=== PATIENT | female | born 1950 | race Caucasian/White ===

== ENCOUNTER 2017-09-29 11:50 | Inpatient (IN) | payer MEDICARE, BC ==
[2017-09-29] MEDS ORDERED: NORMAL SALINE 1000 ML 1,000 ML IV ONE (12:17)
--- NOTE | 2017-09-29 12:20 | ER Document Report ---
ED Medical Screen (RME) - General Chief Complaint: Fall Stated Complaint: ALTERED MENTAL STATUS Time Seen by Provider: 09/29/17 12:17 Notes: pt with rash on bilat le, confusion. hx strokes. has been spraying house for "bugs". takes 4 bp meds-bp at triage 91 sys. TRAVEL OUTSIDE OF THE [place] IN LAST 30 DAYS: No - Related Data Allergies/Adverse Reactions: No Known Allergies Allergy (Verified 09/29/17 11:53) Past Medical History - Past Medical History Cardiac Medical History: Reports: Hx Coronary Artery Disease, Hx Hypercholesterolemia, Hx Hypertension, Hx Heart Murmur Denies: Hx Atrial Fibrillation, Hx Congestive Heart Failure, Hx Heart Attack , Hx Peripheral Vascular Disease Pulmonary Medical History: Denies: Hx Tuberculosis Neurological Medical History: Reports: Hx Cerebrovascular Accident. Denies: Hx Seizures Renal/ Medical History: Denies: Hx Peritoneal Dialysis GI Medical History: Denies: Hx Crohn's Disease, Hx Gastroesophageal Reflux Disease, Hx Hiatal Hernia, Hx Irritable Bowel, Hx Liver Failure, Hx Pancreatitis , Hx Ulcer Musculoskeltal Medical History: Reports Hx Arthritis, Denies Hx Fibromyalgia, Denies Hx Multiple Sclerosis, Denies Hx Muscular Dystrophy Psychiatric Medical History: Reports: Hx Depression Denies: Hx Dementia Traumatic Medical History: Denies: Hx Fractures Past Surgical History: Reports: Hx Appendectomy, Hx Cardiac Surgery, Hx Coronary Artery Bypass Graft, Hx Hysterectomy, Hx Tonsillectomy. Denies: Hx Bowel Surgery, Hx Section, Hx Cholecystectomy, Hx Colostomy, Hx Gastric Bypass Surgery, Hx Herniorrhaphy, Hx Mastectomy, Hx Pacemaker, Hx Tubal Ligation - Immunizations Hx Diphtheria, Pertussis, Tetanus Vaccination: Yes Physical Exam - Vital signs Vitals: Temp Pulse Resp BP Pulse Ox 97.7 F 78 20 91/61 L 98 09/29/17 12:01 09/29/17 12:01 09/29/17 12:01 09/29/17 12:01 09/29/17 12:01 Course - Vital Signs Vital signs: Temp Pulse Resp BP Pulse Ox 97.7 F 78 20 91/61 L 98 09/29/17 12:01 09/29/17 12:01 09/29/17 12:01 09/29/17 12:01 09/29/17 12:01
--- NOTE | 2017-09-29 13:24 | ER Document Report ---
ED General - General Chief Complaint: Fall Stated Complaint: ALTERED MENTAL STATUS Time Seen by Provider: 09/29/17 12:17 Notes: Patient brought in by son to evaluate rash on the anterior aspects of her upper legs and for altered mental status and changes in mental status. Patient lives alone, and was found laying on the floor this morning. Not sure how she ended up there. They say that she has not been eating well and not drinking sufficient fluids and doing very forgetful things like thinking that she has 2 dogs when she only has one, getting out of the car and leaving it running, etc. These mental status changes have been going on for the past 2-3 weeks, although her son says that the patient has had some mental status changes for longer than that. And says that she was admitted to this hospital a couple of years ago for altered mental status which was secondary to a bloodstream infection. He says that she has had a couple of strokes in the past. Patient is also responsible for her own medications and son is not sure she is taking them properly. He got her a bottle of tramadol, 160 pills, a week or so ago and it is now empty. They do not know if she has hidden them away or is taken all of them. Patient was on Xarelto, but ran out and that was refilled and resumed about a week or 2 ago. Also, patient has an itchy erythematous rash to the anterior aspects of both thighs. This is been going on for about 3 weeks. Son says that it started on the anterior aspect of the right thigh. Patient's sister has been spraying her down with chemical sprays for bedbugs. Patient only has the rash in the anterior thighs and some on the right lower leg. Patient has not had any complaints of chest pain, shortness of breath, abdominal pain, nausea or vomiting, etc. TRAVEL OUTSIDE OF THE [place] IN LAST 30 DAYS: No - Related Data Allergies/Adverse Reactions: No Known Allergies Allergy (Verified 09/29/17 11:53) Past Medical History - Social History Smoking Status: Current Some Day Smoker Family History: Reviewed & Not Pertinent Patient has suicidal ideation: No Patient has homicidal ideation: No - Past Medical History Cardiac Medical History: Reports: Hx Coronary Artery Disease, Hx Hypercholesterolemia, Hx Hypertension, Hx Heart Murmur Neurological Medical History: Reports: Hx Cerebrovascular Accident. Denies: Hx Seizures Musculoskeltal Medical History: Reports Hx Arthritis Psychiatric Medical History: Reports: Hx Depression Denies: Hx Dementia Past Surgical History: Reports: Hx Appendectomy, Hx Cardiac Surgery, Hx Coronary Artery Bypass Graft, Hx Hysterectomy, Hx Tonsillectomy - Immunizations Hx Diphtheria, Pertussis, Tetanus Vaccination: Yes Review of Systems - Review of Systems Notes: REVIEW OF SYSTEMS: Provided by son CONSTITUTIONAL : Denies fever. EENT: Denies eye, ear, nose or mouth or throat pain or other symptoms. CARDIOVASCULAR: Denies chest pain. RESPIRATORY: Denies cough, chest congestion, or shortness of breath. GASTROINTESTINAL: Denies abdominal pain or nausea, vomiting, or diarrhea. GENITOURINARY: Denies difficulty or painful urinating, urinary frequency, blood in urine. MUSCULOSKELETAL: Denies back or neck pain. Denies joint pain or swelling. SKIN: See HPI. S. NEUROLOGICAL: See HPI. Denies headache. Denies sensory loss or motor deficits. ALL OTHER SYSTEMS REVIEWED AND NEGATIVE. Physical Exam - Vital signs Vitals: Temp Pulse Resp BP Pulse Ox 97.7 F 78 20 91/61 L 98 09/29/17 12:01 09/29/17 12:01 09/29/17 12:01 09/29/17 12:01 09/29/17 12:01 Interpretation: Normal, Hypotensive - 91/61. - Notes Notes: PHYSICAL EXAMINATION: GENERAL: Well-appearing, in no acute distress. Vital signs are all normal except for blood pressure of 91/61. Afebrile. Sleeping, but easily awakens to voice. Follows commands appropriately. Seems confused in her conversation. HEAD: Atraumatic, normocephalic. EYES: Pupils equal round and reactive to light, extraocular movements intact. ENT: oropharynx clear without exudates. Moist mucous membranes. NECK: Normal range of motion, supple. LUNGS: Breath sounds clear and equal bilaterally. HEART: Regular rate and rhythm without murmurs. ABDOMEN: Soft, nontender. No guarding or rebound. No masses. BACK: No tenderness throughout entire back. EXTREMITIES: Normal range of motion without pain. NEUROLOGICAL: Normal sensory, motor, and reflex exams. Awake, alert. Ambulates to the restroom commode from the wheelchair. PSYCH: Normal mood, normal affect. SKIN: Diffuse erythematous, desquamating rash of the anterior aspect of both thighs, primarily anterior aspect with a small little area of similar rash starting around the right ankle. There is essentially no involvement of the posterior aspect of either leg. There is no involvement from the pelvic region upward. Course - Re-evaluation Re-evalutation: 09/29/17 16:25 Spoke to patient's primary care provider, Dr. Suh, as well as his PA about the patient. Dr. Suh says that the patient has had episodes of irregular heartbeat, but never diagnosed his actual atrial fibrillation. She has had multiple strokes in the past. - Vital Signs Vital signs: Temp Pulse Resp BP Pulse Ox 97.7 F 78 20 91/61 L 98 09/29/17 12:01 09/29/17 12:01 09/29/17 12:01 09/29/17 12:01 09/29/17 12:01 - Laboratory Result Diagrams: 09/29/17 12:55 09/29/17 12:55 Laboratory results interpreted by me: 09/29/17 09/29/17 12:55 14:40 Glucose 183 H AST 126 H ALT 68 H Total Protein 6.1 L Urine Ketones 20 H Urine Blood MODERATE H Salicylates < 1.0 L Acetaminophen < 10 L - Diagnostic Test Radiology reviewed: Image reviewed, Reports reviewed - CT scan shows a large subacute infarct of the right temporal lobe. Radiology results interpreted by me: 09/29/17 16:27 Chest x-ray shows no acute changes. - EKG Interpretation by Me Rate: Normal Rhythm: A.Fib - Been back to her vomiting basically Discharge - Discharge Clinical Impression: Left temporal lobe infarction, Altered mental status, Contact dermatitis Atrial fibrillation Qualifiers: Atrial fibrillation type: chronic Qualified Code(s): I48.2 - Chronic atrial fibrillation Condition: Fair Disposition: ADMITTED INPATIENT Admitting Provider: Hospitalist Unit Admitted: Telemetry
[2017-09-29 13:27] LABS: ABSOLUTE BASOPHILS # (AUTO) 0.1 10^3/uL (0.0-0.2); ABSOLUTE EOSINOPHILS # (AUTO) 0.1 10^3/uL (0.0-0.6); ABSOLUTE LYMPHOCYTES (AUTO) 1.3 10^3/uL (0.5-4.7); ABSOLUTE MONOCYTES (AUTO) 0.8 10^3/uL (0.1-1.4); ABSOLUTE NEUT (AUTO) 6.5 10^3/uL (1.7-8.2); EOSINOPHILS % (AUTO) 1.4 % (0-6); HEMATOCRIT 36.2 % (36.0-47.0); HEMOGLOBIN 12.5 g/dL (12.0-15.5); LYMPHOCYTES % (AUTO) 15.2 % (13-45); MEAN CORPUSCULAR HEMOGLOBIN 30.7 pg (27.0-33.4); MEAN CORPUSCULAR HGB CONC 34.6 g/dL (32.0-36.0); MEAN CORPUSCULAR VOLUME 89 fl (80-97); MONOCYTES % (AUTO) 9.3 % (3-13); PLATELET COUNT 380 10^3/uL (150-450); RED BLOOD COUNT 4.07 10^6/uL (3.72-5.28); RED CELL DISTRIBUTION WIDTH 12.9 % (11.5-14.0); SEGMENTED NEUTROPHILS % (AUTO) 73.1 % (42-78); TOTAL CELLS COUNTED % (AUTO) 100 %; WHITE BLOOD COUNT 8.9 10^3/uL (4.0-10.5)
[2017-09-29 13:49] LABS: VENOUS BLOOD BASE EXCESS -0.7 mmol/L; VENOUS BLOOD HCO3 24.1 mmol/L (20-32); VENOUS BLOOD PCO2 40.2 mmHg (35-63); VENOUS BLOOD PH 7.4 (7.30-7.42)
[2017-09-29 13:55] LABS: ALANINE AMINOTRANSFERASE 68 U/L (9-52); ALKALINE PHOSPHATASE 96 U/L (38-126); ANION GAP 14 (5-19); ASPARTATE AMINO TRANSFERASE 126 U/L (14-36); BILIRUBIN,DIRECT 0.1 mg/dL (0.0-0.4); BILIRUBIN,TOTAL 0.3 mg/dL (0.2-1.3); BLOOD UREA NITROGEN 11 mg/dL (7-20); CALCIUM 9.6 mg/dL (8.4-10.2); CARBON DIOXIDE 26 mmol/L (22-30); CHLORIDE 101 mmol/L (98-107); GLUCOSE 183 mg/dL (75-110); POTASSIUM 3.6 mmol/L (3.6-5.0); SODIUM 141.4 mmol/L (137-145); TOTAL PROTEIN 6.1 g/dL (6.3-8.2)
[2017-09-29 13:56] LABS: ACETAMINOPHEN < 10 ug/mL (10-30); ALCOHOL < 10 mg/dL (NONE DETECTED); SALICYLATE < 1.0 mg/dL (2.0-20.0)
--- NOTE | 2017-09-29 14:22 | RADIOLOGY REPORT (SQ) ---
EXAM DESCRIPTION: CT HEAD WITHOUT COMPLETED DATE/TIME: 09/29/2017 2:09 pm REASON FOR STUDY: Altered mental status, questionable dementia COMPARISON: CT brain 07/04/2016, 06/10/2014, 06/20/2012 MRI brain 07/04/2016 TECHNIQUE: Axial images acquired through the brain without intravenous contrast. Images reviewed wi th bone, brain and subdural windows. Images stored on PACS. All CT scanners at this facility use dose modulation, iterative reconstruction, and/or weight based d osing when appropriate to reduce radiation dose to as low as reasonably achievable (ALARA). [facility]: Dose Right [facility]: CareDose [facility]: Dose Right [facility]: Teradose 4D [facility]: Smart Technologies RADIATION DOSE: CT Rad equipment meets quality standard of care and radiation dose reduction techniq ues were employed. CTDIvol: 64.6 mGy. DLP: 1163 mGy-cm. mGy. LIMITATIONS: None. FINDINGS: VENTRICLES: Normal size and contour. CEREBRUM: There is a large subacute infarct in the right temporal lobe, nonhemorrhagic. Mild local m ass effect with sulcal effacement. No midline shift. Infarct is best shown on axial images 17 throu gh 24. Remainder of the brain demonstrates old infarcts in the right cerebellar hemisphere, mid belgica, left inferior frontal lobe, right frontal cortex and subcortical white matter, and left posterior fr ontal cortex and subcortical white matter. No acute intracranial hemorrhage, mass effect, or midline shift. CEREBELLUM: Old right cerebellar hemisphere infarct. No acute hemorrhage. No mass effect. EXTRAAXIAL SPACES: No fluid collections. No masses. ORBITS AND GLOBE: No intra- or extraconal masses. Normal contour of globe without masses. CALVARIUM: No fracture. PARANASAL SINUSES: No fluid or mucosal thickening. SOFT TISSUES: No mass or hematoma. OTHER: No other significant finding. IMPRESSION: Subacute large infarct in the right temporal lobe, no gross hemorrhage. Multiple old infarcts in the right cerebellar hemisphere mid belgica and bifrontal regions EVIDENCE OF ACUTE STROKE: NO. COMMENT: Quality ID # [id number]: Final reports with documentation of one or more dose reduction techniques (e.g., Automated exposure control, adjustment of the mA and/or kV according to patient size, use of iterative reconstruction technique) TECHNICAL DOCUMENTATION: JOB ID: [id number]- All Rights Reserved
--- NOTE | 2017-09-29 14:23 | RADIOLOGY REPORT (SQ) ---
EXAM DESCRIPTION: CHEST PA/LAT COMPLETED DATE/TIME: 09/29/2017 2:14 pm REASON FOR STUDY: Low blood pressure COMPARISON: Two-view chest 08/27/2014, 08/24/2014 EXAM PARAMETERS: NUMBER OF VIEWS: two views TECHNIQUE: Digital Frontal and Lateral radiographic views of the chest acquired. RADIATION DOSE: NA LIMITATIONS: none FINDINGS: LUNGS AND PLEURA: No opacities, masses or pneumothorax. No pleural effusion. MEDIASTINUM AND HILAR STRUCTURES: Old sternotomy for CABG. No hilar enlargement. Normal mediastinal silhouette HEART AND VASCULAR STRUCTURES: Borderline cardiomegaly BONES: Osteopenic HARDWARE: None in the chest. OTHER: No other significant finding. IMPRESSION: No acute infiltrates. Borderline cardiomegaly with old sternotomy and CABG TECHNICAL DOCUMENTATION: JOB ID: [id number] [employer]- All Rights Reserved
[2017-09-29 15:06] LABS: APPEARANCE,URINE CLEAR; BILIRUBIN,URINE NEGATIVE (NEGATIVE); COLOR,URINE YELLOW; GLUCOSE, URINE NEGATIVE (NEGATIVE); KETONES,URINE 20 mg/dL (NEGATIVE); LEUKOCYTE ESTERASE,URINE NEGATIVE (NEGATIVE); NITRITE,URINE NEGATIVE (NEGATIVE); PROTEIN,URINE NEGATIVE (NEGATIVE); URINE SPECIFIC GRAVITY 1.008; UROBILINOGEN,URINE NEGATIVE mg/dL (<2.0)
[2017-09-29] MEDS ORDERED: LORAZEPAM 0.5 MG TABLET PO ONE (16:32)
[2017-09-29] MEDS ORDERED: ACETAMINOPHEN 325 MG TABLET PO PRN (17:14)
[2017-09-29] MEDS ORDERED: ONDANSETRON HCL INJ/PF 4 MG/2 ML SDV IV PRN (17:14)
[2017-09-29] MEDS ORDERED: MAG HYDROX/AL HYDROX/SIMETH SUSP 30 ML UDCUP PO PRN (17:14)
[2017-09-29] MEDS ORDERED: HALOPERIDOL LACTATE INJ 5 MG/1 ML VIAL IV PRN (17:30)
--- NOTE | 2017-09-29 17:48 | PDOC H&P ---
History of Present Illness Admission Date/PCP: 09/29/17 16:34 ADALBERTO RIVERS MD History of Present Illness: GAYLE GRAMAJO is a 66 year old female who is brought in by her son to evaluate a rash on her anterior thighs as well as for changes in her mental status. She lives alone. This morning, she was found on her floor. She is not sure how she ended up there. He says that she had not been eating well or drinking enough fluids. She was very forgetful. She thinks that she has 2 dogs but she only has one. She is even been noted to get out of her car and even running. He is changes have been going on for the past several weeks according to the son. According to her sister, her confusion has been going on for several months. According to her sister, the patient discovered that she had bedbugs several months ago and began to spray her home with various chemicals. About a week ago, the patient told her sister not to come over and help her any longer. Her sister came by her home yesterday afternoon and found her on the floor. The son came over the house today, and found her on the floor again. Her sister came over this afternoon and found her in her dog pillow. Her son was not sure if she was taking her medications properly. He had a bottle of tramadol that at one point had 160 pills, that is now empty. Apparently, the patient was also on Xarelto, but ran out and has not resumed the medication. Past Medical History Cardiac Medical History: Reports: Coronary Artery Disease, Hyperlipidema, Hypertension, Heart Murmur Denies: Atrial Fibrillation, Congestive Heart Failure, Myocardial Infarction , Peripheral Vascular Disease Pulmonary Medical History: Denies: Tuberculosis Neurological Medical History: Denies: Seizures GI Medical History: Denies: Crohn's Disease, Gastroesophageal Reflux Disease, Hiatal Hernia Musculoskeltal Medical History: Reports: Arthritis Denies: Fibromyalgia Psychiatric Medical History: Reports: Depression Denies: Dementia Past Surgical History Past Surgical History: Reports: Appendectomy, Coronary Artery Bypass Graft, Hysterectomy, Tonsillectomy Denies: Amputation, Section, Cholecystectomy, Colostomy, Gastric Bypass Surgery, Herniorrhaphy, Mastectomy, Pacemaker, Tubal Ligation Social History Smoking Status: Current Some Day Smoker Frequency of Alcohol Use: Occasional Hx Recreational Drug Use: No Drugs: None Hx Prescription Drug Abuse: No - Advance Directive Resuscitation Status: Full Code Family History Family History: Reviewed & Not Pertinent Parental Family History Reviewed: No Children Family History Reviewed: No Sibling(s) Family History Reviewed.: No Medication/Allergy Allergies/Adverse Reactions: No Known Allergies Allergy (Verified 09/29/17 11:53) Review of Systems ROS unobtainable: Due to mental status Physical Exam Vital Signs: Temp Pulse Resp BP Pulse Ox 97.7 F 78 20 91/61 L 98 09/29/17 12:01 09/29/17 12:01 09/29/17 12:01 09/29/17 12:09/29/17 12:01 General appearance: PRESENT: no acute distress, cooperative, thin Head exam: PRESENT: atraumatic, normocephalic Eye exam: PRESENT: EOMI, PERRLA Mouth exam: PRESENT: moist, neck supple Neck exam: ABSENT: carotid bruit, JVD, lymphadenopathy Respiratory exam: PRESENT: clear to auscultation laila. ABSENT: rales, rhonchi, wheezes Cardiovascular exam: PRESENT: irregular rhythm Pulses: PRESENT: +2 pedal pulses bilateral GI/Abdominal exam: PRESENT: normal bowel sounds, soft. ABSENT: distended, guarding, mass, organolmegaly, rebound, tenderness Extremities exam: PRESENT: full ROM. ABSENT: calf tenderness, clubbing, pedal edema Musculoskeletal exam: PRESENT: ambulatory Neurological exam: PRESENT: alert, awake, oriented to person, abnormal gait, CN II-XII grossly intact. ABSENT: oriented to place, oriented to time, oriented to situation, ataxia Psychiatric exam: PRESENT: anxious Skin exam: PRESENT: other - Bilateral anterior thighs with erythematous, crusty rash with distinct boundaries. Results Impressions: Chest X-Ray 09/29/17 13:16 IMPRESSION: No acute infiltrates. 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 Multiple old infarcts in the right cerebellar hemisphere mid belgica and bifrontal regions EVIDENCE OF ACUTE STROKE: NO. Assessment & Plan - Diagnosis (1) Cognitive impairment Is this a current diagnosis for this admission?: Yes Plan: Based on the son and sisters description of her impairment, it sounds like she has dementia. She has had multiple head scans in the past with previous strokes. I suspect she has vascular dementia. I will start her on Seroquel 25 mg at bedtime because she is a bit impulsive. Haldol 0.5 mg IV every 6 hours as needed for agitation. Check TSH, RPR, and Vit B12. (2) Atrial fibrillation Qualifiers: Atrial fibrillation type: chronic Qualified Code(s): I48.2 - Chronic atrial fibrillation Is this a current diagnosis for this admission?: Yes Plan: Her rate is controlled. I will start her on anticoagulation if she does not have a large infarct. A brain MRI is ordered. For now I will use subcu heparin for DVT prophylaxis (3) CVA (cerebral infarction) Qualifiers: Cerebral infarction mechanism: embolism Laterality of affected vessel: unspecified Is this a current diagnosis for this admission?: Yes Plan: She already has a history of strokes. Interestingly, 2015 she was admitted here for a stroke. That time she had an echocardiogram. There was no cardioembolic source for the stroke, but it did show a suspected PFO. She was transferred to outside hospital for a JOON and further workup. I will order a brain MRI, and MRA of head and neck. Echocardiogram. PT/OT/ST. Case management referral. - Time Time Spent: 50 to 70 Minutes Medications reviewed and adjusted accordingly: Yes Anticipated discharge: SNF - Inpatient Certification Based on my medical assessment, after consideration of the patient's comorbidities, presenting symptoms, or acuity I expect that the services needed warrant INPATIENT care.: Yes I certify that my determination is in accordance with my understanding of Medicare's requirements for reasonable and necessary INPATIENT services [42 CFR 412.3e].: Yes Medical Necessity: Need for Neurological Checks
[2017-09-29] MEDS: DOCUSATE SODIUM 100 MG CAPSULE PO SCH (18:08)
--- NOTE | 2017-09-29 18:23 | EKG REPORT ---
SEVERITY:- ABNORMAL ECG - ATRIAL FIBRILLATION DIFFUSE NONSPECIFIC ST-T CHANGES : Confirmed by: Haresh Chowdhury MD 29-Sep-2017 18:22:29
[2017-09-29] MEDS ORDERED: QUETIAPINE FUMARATE 25 MG TABLET PO SCH (22:00)
[2017-09-29] MEDS ORDERED: MAGNESIUM HYDROXIDE SUSP 30 ML UDCUP PO PRN (22:00)
[2017-09-29] MEDS: HEPARIN SOD (PORCINE) 5,000 UNIT/ML 1 ML SYRINGE SUBCUT SCH (22:02)
[2017-09-30 05:25] LABS: PHOSPHORUS 3.4 mg/dL (2.5-4.5)
[2017-09-30] MEDS: HEPARIN SOD (PORCINE) 5,000 UNIT/ML 1 ML SYRINGE SUBCUT SCH ×2 (05:40→14:17)
[2017-09-30] MEDS ORDERED: ACETAMINOPHEN 325 MG TABLET PO PRN (08:00)
[2017-09-30] MEDS ORDERED: MAGNESIUM OXIDE 400 MG TABLET PO ONE ×2 (08:00→12:00)
[2017-09-30] MEDS ORDERED: ONDANSETRON HCL INJ/PF 4 MG/2 ML SDV IV PRN (08:00)
[2017-09-30] MEDS ORDERED: MAGNESIUM HYDROXIDE SUSP 30 ML UDCUP PO PRN (08:00)
[2017-09-30] MEDS ORDERED: MAG HYDROX/AL HYDROX/SIMETH SUSP 30 ML UDCUP PO PRN (08:00)
[2017-09-30] MEDS: BETAMETHASONE VALERATE 0.1% TP SCH ×2 (11:19→17:09)
[2017-09-30] MEDS: DOCUSATE SODIUM 100 MG CAPSULE PO SCH ×2 (11:20→17:09)
--- NOTE | 2017-09-30 12:03 | RADIOLOGY REPORT (SQ) ---
EXAM DESCRIPTION: MRI HEAD WITHOUT; MRA HEAD WITHOUT COMPLETED DATE/TIME: 09/30/2017 10:43 am REASON FOR STUDY: CVA COMPARISON: CT brain 10/09/2011, 06/20/2012, 06/10/2014, 07/04/2016, 09/29/2017 MRI brain 10/10/2011, 07/04/2016 TECHNIQUE: Multiplanar imaging includes non-contrasted T1, T2, FLAIR, and diffusion with ADC map seq uences. Images stored on PACS. [place] MRA was performed with 3D [id number] acquisition. Source data and maximum inten sity projected images in multiple planes were reviewed. LIMITATIONS: None. FINDINGS: ANATOMY: No developmental anomalies. Normal vascular flow voids. Pituitary fossa normal. CSF SPACES: Normal in size and contour. No hemorrhage. CEREBRUM: Since the brain MRI and CT 07/04/2016, patient has developed a moderate size chronic appea ring right MCA distribution infarct in the right temporal lobe and posterior insular cortex. There i s encephalomalacia with surface rind of increased T1 weighted signal from old hemorrhagic staining. Chronic appearing stable infarcts are present in the right frontal cortex high over the convexity, le ft anterior inferior temporal lobe, left temporal parietal lobe. There are confluent areas of increa sed FLAIR signal in the deep hemispheric white matter on T1 weighted images from chronic white matter disease. No MR evidence of acute ischemic change, acute intracranial hemorrhage, mass effect, or midline shift . POSTERIOR FOSSA: Moderate chronic pontine small vessel ischemic change. Old inferior right cerebella r hemisphere infarct. No acute hemorrhage. No edema, masses or mass effect. Internal auditory canal s, cerebello-pontine angles, mastoids normal. DIFFUSION IMAGING: Negative for acute or sub-acute infarction. ORBITS: No masses. Globes normal. PARANASAL SINUSES: No fluid levels. Mucosa normal. [place] MRA: No other significant finding. No [place] stenosis, vascular malformat ion, or aneurysm IMPRESSION: Multiple nonacute infarcts in the cerebral hemispheres and right cerebellar hemisphere. No acute findings Unremarkable [place] MRA exam EVIDENCE OF ACUTE STROKE: NO. TECHNICAL DOCUMENTATION: JOB ID: [id number] [employer]- All Rights Reserved
--- NOTE | 2017-09-30 12:03 | RADIOLOGY REPORT (SQ) ---
EXAM DESCRIPTION: MRI HEAD WITHOUT; MRA HEAD WITHOUT COMPLETED DATE/TIME: 09/30/2017 10:43 am REASON FOR STUDY: CVA COMPARISON: CT brain 10/09/2011, 06/20/2012, 06/10/2014, 07/04/2016, 09/29/2017 MRI brain 10/10/2011, 07/04/2016 TECHNIQUE: Multiplanar imaging includes non-contrasted T1, T2, FLAIR, and diffusion with ADC map seq uences. Images stored on PACS. [place] MRA was performed with 3D [id number] acquisition. Source data and maximum inten sity projected images in multiple planes were reviewed. LIMITATIONS: None. FINDINGS: ANATOMY: No developmental anomalies. Normal vascular flow voids. Pituitary fossa normal. CSF SPACES: Normal in size and contour. No hemorrhage. CEREBRUM: Since the brain MRI and CT 07/04/2016, patient has developed a moderate size chronic appea ring right MCA distribution infarct in the right temporal lobe and posterior insular cortex. There i s encephalomalacia with surface rind of increased T1 weighted signal from old hemorrhagic staining. Chronic appearing stable infarcts are present in the right frontal cortex high over the convexity, le ft anterior inferior temporal lobe, left temporal parietal lobe. There are confluent areas of increa sed FLAIR signal in the deep hemispheric white matter on T1 weighted images from chronic white matter disease. No MR evidence of acute ischemic change, acute intracranial hemorrhage, mass effect, or midline shift . POSTERIOR FOSSA: Moderate chronic pontine small vessel ischemic change. Old inferior right cerebella r hemisphere infarct. No acute hemorrhage. No edema, masses or mass effect. Internal auditory canal s, cerebello-pontine angles, mastoids normal. DIFFUSION IMAGING: Negative for acute or sub-acute infarction. ORBITS: No masses. Globes normal. PARANASAL SINUSES: No fluid levels. Mucosa normal. [facility] MRA: No other significant finding. No [place] stenosis, vascular malformat ion, or aneurysm IMPRESSION: Multiple nonacute infarcts in the cerebral hemispheres and right cerebellar hemisphere. No acute findings Unremarkable [place] MRA exam EVIDENCE OF ACUTE STROKE: NO. TECHNICAL DOCUMENTATION: JOB ID: [id number] [employer]- All Rights Reserved
--- NOTE | 2017-09-30 12:11 | RADIOLOGY REPORT (SQ) ---
EXAM DESCRIPTION: MRA NECK WITHOUT COMPLETED DATE/TIME: 09/30/2017 10:43 am REASON FOR STUDY: CVA COMPARISON: MRA of the neck 10/10/2011 CT brain 09/29/2017, 07/04/2016 MRI brain 07/04/2016 TECHNIQUE: Axial 2-D volume acquisition, additional 3D [id number] acquisition imaging through th e extracranial carotid and vertebral arteries with reformatting using 3-D MIPS. LIMITATIONS: None. FINDINGS: RIGHT CAROTID ARTERY: Right common carotid artery, right carotid bifurcation in the field of view unremarkable. Right cervical ICA is tortuous in the upper neck without focal stenosis. LEFT CAROTID ARTERY: Left common carotid artery, left carotid bifurcation in the field of view unrema rkable. Left cervical ICA unremarkable. VERTEBRAL ARTERIES: The extracranial portions of the vertebral basilar system are preserved without s tenosis. No aneurysmal dilatation or dissection is seen. Codominant vertebral arteries OTHER: No other significant finding. IMPRESSION: NO SIGNIFICANT STENOSIS. COMMENT: Quality ID #[id number]: Measurements of distal internal carotid diameter were used as the denomin ator for stenosis measurement. TECHNICAL DOCUMENTATION: JOB ID: [id number] [employer]- All Rights Reserved
--- NOTE | 2017-09-30 17:35 | XCELERA REPORT ---
[address] [address] Transthoracic Echocardiogram Report Name: GAYLE GRAMAJO Age: 67 yrs Gender: Female : 1950 Patient Status: Inpatient Patient Location: [address] [place] [address] Study Date: 09/30/2017 01:22 PM Height: 59 in Weight: 119 lb BSA: 1.5 m2 Procedure: A complete two-dimensional transthoracic echocardiogram was performed (2D, M-mode, spectral and color flow Doppler). The study was technically adequate with some images being suboptimal in quality. Reason For Study: CVA Ordering Physician: ROJELIO NGUYỄN Performed By: Sally Frazier Interpretation Summary Left ventricular systolic function is normal. There is borderline concentric left ventricular hypertrophy. The left ventricle is grossly normal size. LV diastolic function could not be adequately assessed due to atrial fibrilation. Wall motion cannot be accurately commented on, but no definite regional wall motion abnormalities noted. The right ventricular systolic function is normal. The right atrium is mildly dilated. The left atrium is mildly dilated. There is a trace to mild amount of mitral regurgitation There is no mitral valve stenosis. No aortic regurgitation is present. There is no aortic valve stenosis There is a trace to mild amount of tricuspid regurgitation Right ventricular systolic pressure is at the upper limits of normal The pulmonic valve is not well visualized. The aortic root is not well visualized but is probably normal size. The inferior vena cava appeared normal and decreased > 50% with respiration (RAP 5-10 mmHg) Minimal pericardial effusion. MMode/2D Measurements & Calculations RVDd: 2.7 cm LVIDd: 4.1 cm FS: 45.6 % Ao root diam: 2.5 cm IVSd: 0.78 cm LVIDs: 2.2 cm EDV(Teich): 74.3 ml LVPWd: 1.1 cm ESV(Teich): 16.8 ml Ao root area: 4.9 cm2 EF(Teich): 77.4 % LA dimension: 3.5 cm Doppler Measurements & Calculations MV E max saad: MV P1/2t max saad: Ao V2 max: LV V1 max P.2 cm/sec 47.4 cm/sec 211.1 cm/sec 2.5 mmHg MV A max saad: MV P1/2t: 40.2 msec Ao max PG: LV V1 max: 97.2 cm/sec 17.9 mmHg 78.5 cm/sec MV E/A: 0.59 MVA(P1/2t): 5.5 cm2 MV dec slope: 345.1 cm/sec2 PA V2 max: TR max saad: 67.1 cm/sec 270.1 cm/sec PA max PG: TR max P.2 mmHg 1.8 mmHg Left Ventricle The left ventricle is grossly normal size. There is borderline concentric left ventricular hypertrophy. Left ventricular systolic function is normal. LV diastolic function could not be adequately assessed due to atrial fibrilation. Wall motion cannot be accurately commented on, but no definite regional wall motion abnormalities noted. Right Ventricle The right ventricle is mildly dilated. There is normal right ventricular wall thickness. The right ventricular systolic function is normal. Atria The right atrium is mildly dilated. The left atrium is mildly dilated. Mitral Valve The mitral valve is grossly normal. There is no mitral valve stenosis. There is a trace to mild amount of mitral regurgitation. Aortic Valve The aortic valve is not well visualized secondary to technical limitations. There is no aortic valve stenosis. No aortic regurgitation is present. Tricuspid Valve The tricuspid valve is not well visualized, but is grossly normal. There is no tricuspid stenosis. There is a trace to mild amount of tricuspid regurgitation. Right ventricular systolic pressure is at the upper limits of normal. Pulmonic Valve The pulmonic valve is not well visualized. Great Vessels The aortic root is not well visualized but is probably normal size. The inferior vena cava appeared normal and decreased > 50% with respiration (RAP 5-10 mmHg). Effusions Minimal pericardial effusion. : ROJELIO NGUYỄN > Ruba Alexander
[2017-09-30] MEDS ORDERED: MAGNESIUM OXIDE 400 MG TABLET PO SCH (18:00)
[2017-09-30 18:20] VITALS: BP 92/50
--- NOTE | 2017-09-30 18:25 | PDOC DISCHARGE SUMMARY ---
General - Admit/Disc Date/PCP Admission Date/Primary Care Provider: 09/29/17 16:34 ADALBERTO RIVERS MD Discharge Date: 09/30/17 - Discharge Diagnosis (1) Cognitive impairment Is this a current diagnosis for this admission?: Yes Summary: I believe she has vascular dementia. (2) Atrial fibrillation Is this a current diagnosis for this admission?: Yes Summary: She has chronic atrial fibrillation. (3) CVA (cerebral infarction) Is this a current diagnosis for this admission?: Yes Summary: She has history of multiple infarcts in the past. These are likely embolic secondary to atrial fibrillation. - Additional Information Resuscitation Status: Full Code Discharge Diet: Cardiac Discharge Activity: Activity As Tolerated Prescriptions: Betamethasone Valerate [Valisone 0.1 % Cream 15 gm] 1 applic TP BID 7 Days #60 applic Home Medications: Amlodipine Besylate [Norvasc 10 mg Tablet] 5 mg PO DAILY 09/29/17 Atorvastatin Calcium [Lipitor 80 mg Tablet] 40 mg PO QHS 09/29/17 Bupropion HCl [Wellbutrin 75 mg Tablet] 150 mg PO QAM 09/29/17 Colestipol HCl [Colestid 1 gm Tablet] 1 gm PO QID 09/29/17 Diazepam [Valium 5 mg Tablet] 2.5 mg PO Q8HP PRN 09/29/17 Furosemide [Lasix 40 mg Tablet] 40 mg PO QAM 09/29/17 Rivaroxaban [Xarelto] 20 mg PO WSUPPER 09/29/17 Tramadol HCl [Ultram 50 mg Tablet] 100 mg PO Q8HP PRN 09/29/17 Betamethasone Valerate [Valisone 0.1 % Cream 15 gm] 1 applic TP BID 7 Days #60 applic 09/30/17 History of Present Illness History of Present Illness: GAYLE GRAMAJO is a 66 year old female who is brought in by her son to evaluate a rash on her anterior thighs as well as for changes in her mental status. She lives alone. This morning, she was found on her floor. She is not sure how she ended up there. He says that she had not been eating well or drinking enough fluids. She was very forgetful. She thinks that she has 2 dogs but she only has one. She is even been noted to get out of her car and even running. He is changes have been going on for the past several weeks according to the son. According to her sister, her confusion has been going on for several months. According to her sister, the patient discovered that she had bedbugs several months ago and began to spray her home with various chemicals. About a week ago, the patient told her sister not to come over and help her any longer. Her sister came by her home yesterday afternoon and found her on the floor. The son came over the house today, and found her on the floor again. Her sister came over this afternoon and found her in her dog pillow. Her son was not sure if she was taking her medications properly. He had a bottle of tramadol that at one point had 160 pills, that is now empty. Apparently, the patient was also on Xarelto, but ran out and has not resumed the medication. Hospital Course Hospital Course: Ms. Gramajo was admitted with multiple issues. 1 of the reasons why she came to the hospital was to address the confusion that she been experiencing over the past several months. A CT of the brain was done in the emergency department which indicated a subacute infarct. This led to a stroke evaluation. She was in atrial fibrillation. She has a history of atrial fibrillation. Her rate was controlled. She underwent MRI of her head which showed multiple non-acute infarcts. MR angiogram of her head and neck showed no hemodynamically significant stenosis. Echocardiogram showed normal LV function without cardioembolic source of stroke. I suspect that she has vascular dementia due to multiple strokes in the setting of atrial fibrillation. The other issue that she presented to the ED with, was the rash on her thighs. I suspect that she may have developed a contact dermatitis because of her concern for bedbugs in her home. She was treated with betamethasone cream with some improvement in her dryness and itching. Her hospital stay was uneventful. Physical Exam Vital Signs: Temp Pulse Resp BP Pulse Ox 98.4 F 106 H 18 137/71 H 96 09/30/17 11:00 09/30/17 14:00 09/30/17 11:00 09/30/17 11:00 09/30/17 11:00 Intake & Output 09/29/17 09/30/17 10/01/17 06:59 06:59 06:59 Intake Total 0 1669 Output Total 1 Balance -1 1669 Weight 58.2 kg General appearance: PRESENT: no acute distress, well-developed, well-nourished Head exam: PRESENT: atraumatic, normocephalic Eye exam: PRESENT: EOMI, PERRLA Neck exam: ABSENT: carotid bruit, JVD, lymphadenopathy, thyromegaly Respiratory exam: PRESENT: clear to auscultation laila. ABSENT: rales, rhonchi, wheezes Cardiovascular exam: PRESENT: irregular rhythm Neurological exam: PRESENT: alert, oriented to person, CN II-XII grossly intact , motor sensory deficit, normal gait. ABSENT: oriented to time, oriented to situation Psychiatric exam: PRESENT: appropriate affect Skin exam: PRESENT: cyanosis, dry, intact, rash - Red erythematous scaly area bilateral anterior thighs in a rectangular pattern, warm Results Laboratory Results: 09/29/17 09/30/17 17:52 04:29 Lactic Acid 2.1 Phosphorus 3.4 Magnesium 1.6 Impressions: Chest X-Ray 09/29/17 13:16 IMPRESSION: No acute infiltrates. 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 Multiple old infarcts in the right cerebellar hemisphere mid belgica and bifrontal regions EVIDENCE OF ACUTE STROKE: NO. Brain MRI with MRA 09/30/17 00:00 IMPRESSION: Multiple nonacute infarcts in the cerebral hemispheres and right cerebellar hemisphere. No acute findings Unremarkable ione of [place] MRA exam EVIDENCE OF ACUTE STROKE: NO. Head MRI 09/30/17 00:00 IMPRESSION: Multiple nonacute infarcts in the cerebral hemispheres and right cerebellar hemisphere. No acute findings Unremarkable ione of [place] MRA exam EVIDENCE OF ACUTE STROKE: NO. Neck MRA 09/30/17 00:00 IMPRESSION: NO SIGNIFICANT STENOSIS. Qualifiers - * PATEINT BEING DISCHARGED WITH ANY OF THE FOLLOWING DIAGNOSIS?: Stroke VTE patient discharged on overlapping Therapy?: Yes Stroke Pt being discharged on Anti-thrombolytic therapy?: Yes Stroke Pt being discharged on Anti-coagulation therapy?: Yes Stroke Pt being discharged on Statins?: Yes Plan Time Spent: Greater than 30 Minutes - 35 minutes
== END 2017-09-30 19:00 | disposition home or self-care (01) | DRG 884 ==
LOC: ER 11:50 → EH 16:34 → 3N 09-30 00:09
PROVIDERS: ADMIT Emergency Medicine; ATTEND Emergency Medicine
DX: F01.50 Vascular dementia, unspecified severity, without behavioral disturbance, psychotic disturbance, mood disturbance, and anxiety (principal); I62.9 Nontraumatic intracranial hemorrhage, unspecified; I74.9 Embolism and thrombosis of unspecified artery; I48.2 Chronic atrial fibrillation; L25.9 Unspecified contact dermatitis, unspecified cause; I25.10 Atherosclerotic heart disease of native coronary artery without angina pectoris; E78.00 Pure hypercholesterolemia, unspecified; I10 Essential (primary) hypertension; M19.90 Unspecified osteoarthritis, unspecified site; F32.9 Major depressive disorder, single episode, unspecified; F17.210 Nicotine dependence, cigarettes, uncomplicated; Z95.1 Presence of aortocoronary bypass graft; Z90.710 Acquired absence of both cervix and uterus; Z87.891 Personal history of nicotine dependence
CPT/HCPCS: 36415; 51701; 70450; 70544; 70547; 70551; 71046; 80053; 80307; 81001; 82607; 82803; 83605; 83735; 84100; 84443; 85025; 86592; 87040; 87086; 93005; 93010; 93306; 96360; 99285; G8978-GP; G8979-GP; G8980-GP; G8987-GO; G8988-GO; G8989-GO; J1630; J1644; J3490; J7030